=== PATIENT | female | born 1945 | race Hispanic/Latino ===

== ENCOUNTER 2017-09-07 21:05 | Inpatient (IN) | payer MEDICARE ==
[2017-09-07] MEDS: DOPamine 400mg/250ml D5W 400 MG/250 ML BAG IV PRN ×4 (21:05→23:31)
[2017-09-07] MEDS ORDERED: [UNRECOGNIZED DRUG - OTHER] IV ONE (21:09)
[2017-09-07] MEDS ORDERED: DOPAMINE 400 MG/250 ML IV ONE (21:09)
--- NOTE | 2017-09-07 21:30 | ED PDOC ---
Arrival/HPI - General Time Seen by Provider: 09/07/17 21:15 Historian: EMS - History of Present Illness Narrative History of Present Illness (Text): 09/07/17 21:16 71 year old female, with past medical history of type II diabetes, chronic renal failure without dialysis, hypertension, CAD and CABG, presents to the Emergency department via EMS s/p cardiac arrest two days ago. As per EMS, patient presented at [place] [employer] [place] weak and dizzy immediately going into cardiac arrest on the morning of 09/05/17. Patient was resuscitated by [facility], where CPR was continued for 45 minutes with spontaneous recovery to circulation. Patient was intubated and administered 15mcg dopamine, insulin for possible hyperglycemia and versed drip at 4mg/hr. EMS also reports possible aspiration and stroke s/p cardiac arrest. As per EMS patient shows some reflex, unequal but reactive pupils, weak, lethargic and ronchi upon auscultation on physical exam. Patient has been taken off of insulin for possible hypoglycemia and versed and is currently on dopamine only. Patient is brought to the Emergency department today for ongoing critical care and unresponsiveness. Patient is currently receiving ventilatory support and dopamine. Time/Duration: Other (2 days ) Symptom Onset: Sudden Symptom Course: Improving Context: Other (Cruise Ship ) Past Medical History - Provider Review Nursing Documentation Reviewed: Yes Family/Social History - Physician Review Nursing Documentation Reviewed: Yes Family/Social History: No Known Family HX Allergies/Home Meds Allergies/Adverse Reactions: Allergies No Known Allergies Allergy (Verified 09/07/17 21:21) Home Medications: Home Meds Medication Instructions Recorded Confirmed Unobtainable 09/07/17 09/07/17 Review of Systems - Physician Review All systems were reviewed & negative as marked: Yes - Review of Systems Systems not reviewed;Unavailable: Other (Unresponsive) Eyes: Other (pupils fixed ) Respiratory: Other (respiratory failure s/p cardiac arrest ) Cardiovascular: Other (Cardiac arrest ) Neurological: Dizziness Physical Exam Vital Signs Reviewed: Yes Vital Signs Temp Pulse Resp BP Pulse Ox 09/08/17 00:00 98.6 F 82 12 112/49 L 100 09/07/17 23:31 80 103/47 L 09/07/17 22:30 98.6 F 82 12 113/48 L 100 09/07/17 21:55 98.6 F 80 12 117/56 L 98 09/07/17 21:40 98.6 F 82 12 103/47 L 92 L 09/07/17 21:26 98.6 F 80 12 95/38 L 90 L 09/07/17 21:15 80 81/32 L 09/07/17 21:06 98.6 F 73 12 94/48 L 95 09/07/17 21:05 779 H 95/38 L Temperature: Febrile Blood Pressure: Hypotensive Pulse: Regular Respiratory Rate: Mechanically Ventilated Appearance: Positive for: Other (intubated, unresponsive ) Mental Status: Positive for: other (Unresponsive) - Systems Exam Pupils: Present: Other (no corneal reflexes, pupils fixed and dilated ) Respiratory/Chest: Present: Clear to Auscultation (with ventilatory breath sounds), Other (Intubated ) Cardiovascular: Present: Regular Rate and Rhythm, Other (dopamine for blood pressure stabilization ) Abdomen: Present: Normal Bowel Sounds. No: Tenderness, Distention, Peritoneal Signs, Mass/Organomegaly Upper Extremity: Present: Normal Inspection. No: Cyanosis, Edema Lower Extremity: Present: Normal Inspection. No: Edema Neurological: Present: Other (Unresponsive ) Skin: Present: Warm, Dry, Normal Color. No: Rashes Psychiatric: Present: Other (Unresponsive ) Medical Decision Making ED Course and Treatment: 09/07/17 21:38 Impression: 71 year old female presents to the Emergency department s/p cardiac arrest 2 days ago. Plan: -- VBG -- CT of Head -- EKG -- Labs -- Chest X-ray -- Dopamine -- Unrine Culture -- Ventilatory Support -- Reassess and disposition Progress Notes: 09/07/17 22:19 Chest X-ray reviewed by radiologist, shows mild congestion right more than left. No distinct infiltrate. ET tube in good position and NG tube noted in the stomach. 09/07/17 23:40 CT of head reviewed, shows diffused cerebral edema and anoxic encephalopathy. Patient has no corneal reflex, pupils dilated left greater than right. Will perform EEG in the morning to determine viability of patient. Case discussed in detail with patient's family regarding the poor prognosis. It was informed that there is little likelihood of brain function. Family understands the condition of the patient. No acute intervention indicated at this time. Elevated troponin noted. Administration of aspirin at this time will be futile. - Critical Care Critical Care Minutes: 90 minutes Critical Care Time: Other (continuing care s/p cardiac arrest ) - Lab Interpretations Lab Results: 09/07/17 21:50 09/07/17 21:50 Lab Results 09/07/17 23:44: pO2 174 H, VBG pH 7.16 L*, VBG pCO2 46.0, VBG HCO3 16.4 L, VBG Total CO2 17.8 L, VBG O2 Sat (Calc) 98.9 H, VBG Base Excess -12.1 L, VBG Potassium 5.5 H, Glucose 247 H, Lactate 1.9, FiO2 21.0, Sodium 140.0, Chloride 111.0 H, Venous Blood Potassium 5.5 H 09/07/17 21:50: Sodium 136, Potassium 5.4 H, Chloride 108 H, Carbon Dioxide 18 L , Anion Gap 16, BUN 82 H, Creatinine 5.1 H, Est GFR ( Amer) 10, Est GFR ( Non-Af Amer) 8, Random Glucose 223 H, Calcium 8.4, Phosphorus 6.8 H, Magnesium 2.2, Total Bilirubin 0.6, AST 55 H, ALT 32, Alkaline Phosphatase 125, Lactate Dehydrogenase 1388 H, Total Creatine Kinase 595 H, CK-MB (CK-2) 4.6 H, CK-MB (CK -2) % Cancelled, Troponin I 1.40 H*, Total Protein 5.4 L, Albumin 2.5 L, Globulin 3.0, Albumin/Globulin Ratio 0.8 L 09/07/17 21:50: Urine Color Yellow, Urine Appearance Sl cloudy, Urine pH 5.0, Ur Specific [place] 1.025, Urine Protein 100 H, Urine Glucose (UA) Negative, Urine Ketones Trace H, Urine Blood Small H, Urine Nitrate Negative, Urine Bilirubin Negative, Urine Urobilinogen 0.2, Ur Leukocyte Esterase Small H, Urine RBC 5 - 10, Urine WBC 10 - 15, Ur Epithelial Cells Many, Urine Bacteria Large, Hyaline Casts 0 - 2 09/07/17 21:50: PT 11.6, INR 1.02, APTT 29.0 09/07/17 21:50: WBC 8.7, RBC 3.16 L, Hgb 9.4 L, Hct 30.1 L, MCV 95.3, MCH 29.7, MCHC 31.2, RDW 14.1, Plt Count 193, MPV 9.6, Gran % 86.4 H, Lymph % (Auto) 9.0 L , [place] % (Auto) 4.2, Eos % (Auto) 0.3 L, Baso % (Auto) 0.1, Gran # 7.54 H, Lymph # 0.8 L, [place] # 0.4, Eos # 0.0, Baso # 0.01 09/07/17 21:30: pCO2 25 L, pO2 133.0 H, HCO3 10.2 L, ABG pH 7.22 L, ABG Total CO2 11.0 L, ABG O2 Saturation 98.4 H, ABG O2 Content 9.5 L, ABG Base Excess - 16.0 L, ABG Hemoglobin 6.8 L, ABG Carboxyhemoglobin 1.5, POC ABG HHb (Measured) 1.6, ABG Methemoglobin 0.4, ABG O2 Capacity 9.7 L, Hgb O2 Saturation 96.5, FiO2 50.0 - RAD Interpretation Radiology Orders: 09/07/17 21:22 HEAD W/O CONTRAST [CT] Stat 09/07/17 21:23 CHEST PORTABLE [RAD] Stat Temperature Inspector: ED Physician - Medication Orders Current Medication Orders: Dopamine HCl/Dextrose (Dopamine 400mg/250ml D5w) 400 mg in 250 mls @ 0 mls/hr IV .Q0M PRN; Protocol; 5 MCG/KG/MIN PRN Reason: TITRATE PER MD ORDER Last Admin: 09/07/17 23:31 Dose: 82.5 mls/hr eMAR Start Stop Document 09/07/17 23:31 AB (Rec: 09/07/17 23:31 [id number] Intravenous Solution Start Date 09/07/17 Start Time 21:20 MAR Pulse and Blood Pressure Document 09/07/17 23:31 AB (Rec: 09/07/17 23:31 [id number] Pulse Pulse Rate (60-90) 80 Blood Pressure Blood Pressure (100/60-150/90) 103/47 - Scribe Statement The provider has reviewed the documentation as recorded by the Scribe Blanka Valentin. All medical record entries made by the Scribe were at my direction and personally dictated by me. I have reviewed the chart and agree that the record accurately reflects my personal performance of the history, physical exam, medical decision making, and the department course for this patient. I have also personally directed, reviewed, and agree with the discharge instructions and disposition. Disposition/Present on Arrival - Present on Arrival Any Indicators Present on Arrival: No History of DVT/PE: No History of Uncontrolled Diabetes: Yes Urinary Catheter: Yes History of Decub. Ulcer: No - Disposition Have Diagnosis and Disposition been Completed?: Yes Diagnosis: Anoxic encephalopathy, History of cardiac arrest, Renal failure (ARF), acute on chronic Disposition: HOSPITALIZED Disposition Time: 00:15 Patient Plan: Admission, ICU Condition: SERIOUS Referrals: Ivan García Req, [Primary Care Provider] - Follow up with primary Forms: WORK NOTE, MTDTS
[2017-09-07 21:38] LABS: ARTERIAL BLOOD GAS HCO3 10.2 mmol/L (21-28); ARTERIAL BLOOD GAS HEMOGLOBIN 6.8 g/dL (11.7-17.4); ARTERIAL BLOOD GAS O2 CAPACITY 9.7 mL/dl (16-24); ARTERIAL BLOOD GAS O2 CONTENT 9.5 ML/dl (15-23); ARTERIAL BLOOD GAS O2 SAT 98.4 % (95-98); ARTERIAL BLOOD GAS PCO2 25 mm/Hg (35-45); ARTERIAL BLOOD GAS PH 7.22 (7.35-7.45)
[2017-09-07 22:19] LABS: BASO # 0.01 [, K/mm3] (0.0-2.0); BASO % 0.1 % (0.0-3.0); EOS % 0.3 % (1.5-5.0); GRAN # 7.54 (1.4-6.5); GRAN % 86.4 % (50.0-68.0); HEMOGLOBIN 9.4 g/dL (12.0-16.0); LYMPH # 0.8 (1.2-3.4); MEAN CELL VOLUME 95.3 fl (80.0-105.0); MEAN CORPUSCULAR HEMOGLOBIN 29.7 pg (25.0-35.0); MEAN CORPUSCULAR HGB CONC 31.2 g/dl (31.0-37.0); MEAN PLATELET VOLUME 9.6 fl (7.0-11.0); MONO # 0.4 (0.1-0.6); MONO % 4.2 % (1.0-6.0); RBC 3.16 [, 10^6/uL] (3.5-6.1); RED CELL DISTRIBUTION WIDTH 14.1 % (11.5-14.5); WHITE BLOOD COUNT 8.7 [, 10^3/ul] (4.5-11.0)
[2017-09-07 22:20] LABS: URINE BILIRUBIN NEGATIVE (NEGATIVE); URINE BLOOD SMALL (NEGATIVE); URINE GLUCOSE (UA) NEGATIVE (NEGATIVE); URINE LEUKOCYTE ESTERASE SMALL Leu/uL (NEGATIVE); URINE NITRATE NEGATIVE (NEGATIVE); URINE PROTEIN 100 mg/dL (<30 mg/dL); URINE UROBILINOGEN 0.2 E.U./dL (<1 E.U./dL)
[2017-09-07 22:32] LABS: URINE COLOR YELLOW (YELLOW)
[2017-09-07 22:33] LABS: INR 1.02 (0.93-1.08); PROTHROMBIN TIME 11.6 SECONDS (9.4-12.5); URINE APPEARANCE SL CLOUDY (CLEAR)
[2017-09-07 22:37] LABS: ALB/GLOB RATIO 0.8 (1.1-1.8); ALBUMIN 2.5 g/dL (3.0-4.8); CALCIUM 8.4 mg/dL (8.4-10.5); MAGNESIUM 2.2 mg/dL (1.7-2.2)
[2017-09-07 22:41] LABS: CK-MB 4.6 ng/mL (0.0-3.6)
[2017-09-07 22:52] LABS: URINE BACTERIA LARGE (NEG); URINE EPITHELIAL CELLS MANY /hpf (0-5); URINE HYALINE CAST 0 - 2 /hpf
[2017-09-07 23:20] LABS: TROPONIN I 1.4 ng/mL
[2017-09-08 00:06] LABS: VENOUS BLOOD GAS BASE EXCESS -12.1 mmol/L (0.0-2.0); VENOUS BLOOD GAS PO2 174 mm/Hg (30-55); VENOUS BLOOD PH 7.16 (7.32-7.43)
[2017-09-08] MEDS ORDERED: Dextrose 50% SYRINGE Inj (50 ml) IVP STA (00:09)
[2017-09-08] MEDS ORDERED: Insulin Regular 1 UNITS/0.01 ML ML IVP ONE (00:15)
--- NOTE | 2017-09-08 00:18 | CT ---
EXAM: CT Head Without Intravenous Contrast CLINICAL HISTORY: 71 years old, female; Screening exam; Additional info: Unresponsive TECHNIQUE: Axial computed tomography images of the head/brain without intravenous contrast. All CT scans at this facility use one or more dose reduction techniques, viz.: automated exposure control; ma/kV adjustment per patient size (including targeted exams where dose is matched to indication; i.e. head); or iterative reconstruction technique. Coronal and sagittal reformatted images were created and reviewed. COMPARISON: No relevant prior studies available. FINDINGS: Brain: Extensive diffuse sulcal effacement. No intracranial hemorrhage. No mass. Several scattered foci of decreased attenuation within periventricular/subcortical white matter. Diffuse loss of edwards-white matter differentiation. Ventricles: No hydrocephalus. Bones/joints: No acute fracture. Soft tissues: Unremarkable. Vasculature: Atherosclerotic disease of intracranial arteries. Increased density of vessels and dural sinuses. Sinuses: Fluid/opacification of sinuses. Mastoid air cells: No mastoid effusion. Orbits: Unremarkable as visualized. Tubes, lines and devices: Endotracheal tube. Nasogastric tube. IMPRESSION: 1. Findings compatible with global hypoxic-ischemic injury. 2. Incidental/non-acute findings are described above.
--- NOTE | 2017-09-08 00:56 | CP.PCM.HP ---
<Kem Szymanski - Last Filed: 09/08/17 01:16> History of Present Illness - History of Present Illness History of Present Illness: Patient is a 71 year old female with a past medical history of Diabetes Mellitus II, Chronic renal failure without dialysis, hypertension, coronary artery disease s/p CABG two years prior, who presented to [facility] ED on 09/08/17 s/p cardiac arrest on [employer] cruise ship at 7:50 a.m. on 09/05/17. As per patient's two days prior to event patient was experiencing general weakness, and was "not her usual self," on the morning of cardiac arrest patient was complaining of abdominal pain in addition to general weakness. As per medical records provided by [employer] [facility] [employer], ROSC was achieved after 45 minutes of PEA, 5 doses epinephrine administered. Patient was anisocoric from onset of arrest, status unchanged. Patient was ventilated on AC, dopamine, and midazolam infusions were started. Patient was initially on an insulin infusion of 10 units/hr, discontinued after glucose normalized. Due to tendency of patient to trend towards hypoglycemia, patient received intermittent boluses of 50% dextrose. On cruise ship after intervention patient was stable, maintaining good vitals and tolerating ventilator well. Urine output at the time was minimal, with strict fluid restriction. Due to weather and logistical restraints patient was kept on cruise ship until admission to [facility]. Family History singificant for hypertension, coronary artery disease, diabetes mellitus Present on Admission - Present on Admission Any Indicators Present on Admission: No Review of Systems - Review of Systems Systems not reviewed;Unavailable: Intubated Past Patient History - Past Social History Smoking Status: Unknown If Ever Smoked - CARDIAC Hx Cardiac Disorders: Yes Other/Comment: Post Cardiac Arrest - ROSC after 45 minutes of PEA; CABG x 2 years ago - PULMONARY Hx Respiratory Disorders: No - RENAL Hx Chronic Kidney Disease: Yes - ENDOCRINE/METABOLIC Hx Endocrine Disorders: Yes Hx Diabetes Mellitus Type 2: Yes - PSYCHIATRIC Hx Substance Use: No - SURGICAL HISTORY Hx Surgeries: Yes Hx Coronary Artery Bypass Graft: Yes (2 years ago) Meds Allergies/Adverse Reactions: Allergies Allergy/AdvReac Type Severity Reaction Status Date / Time No Known Allergies Allergy Verified 09/07/17 21:21 Physical Exam - Head Exam Head Exam: ATRAUMATIC, NORMAL INSPECTION, NORMOCEPHALIC - Eye Exam Additional comments: OU fixed, OS dilated, OU non reactive to light, OU no corneal reflex present - ENT Exam ENT Exam: Mucous Membranes Dry - Respiratory Exam Additional comments: On ventilator Bruising on chest wall s/p CPR - Cardiovascular Exam Cardiovascular Exam: REGULAR RHYTHM, +S1, +S2 - GI/Abdominal Exam GI & Abdominal Exam: Distended, Soft. absent: Firm - Extremities Exam Extremities exam: Positive for: pedal edema (bilateral pitting edema of lower extremities) - Skin Skin Exam: Intact, Normal Color, Warm Results - Vital Signs Recent Vital Signs: Last Vital Signs Temp 98.6 F 09/08/17 00:00 Pulse 82 09/08/17 00:00 Resp 12 09/08/17 00:00 BP 112/49 L 09/08/17 00:00 Pulse Ox 100 09/08/17 00:00 - Labs Result Diagrams: 09/07/17 21:50 09/07/17 21:50 Assessment & Plan - Assessment and Plan (Free Text) Assessment: 71 year old female presenting to [facility] ED for further evaluation and management s/ p cardiac rest on 09/05/17 found to be unresponsive since event. Plan: Cardiology -Chest X-ray reviewed; pulmonary congestion, possible left sided pleural effusion, cardiomegaly. Awaiting official read. -No brainstem reflex, will continue with dopamine -IVF@75 cc -At time of event on 09/05, patient's troponin was negative x2, upon admission to [facility] troponin found to be 1.4 -Statin,Aspirin,Heparin drip started Pulmonology -Chest X-ray reviewed; pulmonary congestion, possible left sided pleural effusion, cardiomegaly. Awaiting official read. -Blood gas reveals metabolic acidosis;will keep PEEP at 5%, Tidal volume at 400 , FiO2 at 50%, Rate 12 Neurology -CT head reveals findings compatible with global hypoxic-ischemic injury -No brainstem reflex -Continue with neurochecks q1h -Neurology consulted for brain flow study Gastroenterology -NG tube in place, keep NPO, no intervention at this time Renal -Hyperkalemia; treating with calcium gluconate,insulin w/ dextrose -S/P IVF patient is edematous and patient's creatinine continues to trend upward. Currently 5.1; strict Input & Output -IVF@75 Hematology -Hg 9.1, will follow up with hg. No acute management at this time Infectious Disease -Urinalysis reveals possible cystitis will treat with Levaquin (renal dose adjustment) -Follow up urine and blood cultures <Lance Dykes Q - Last Filed: 09/08/17 06:25> Results - Vital Signs Recent Vital Signs: Last Vital Signs Temp 97.5 F L 09/08/17 04:00 Pulse 86 09/08/17 06:00 Resp 12 09/08/17 01:30 BP 100/42 L 09/08/17 06:00 Pulse Ox 100 09/08/17 06:00 - Labs Result Diagrams: 09/08/17 03:43 09/08/17 03:43 Labs: Laboratory Results - last 24 hr 09/08/17 09/08/17 03:43 03:43 WBC 10.8 D RBC 3.37 L Hgb 9.9 L Hct 31.7 L MCV 94.1 MCH 29.4 MCHC 31.2 RDW 14.2 Plt Count 200 MPV 9.5 Gran % 85.3 H Lymph % (Auto) 8.8 L [place] % (Auto) 5.0 Eos % (Auto) 0.7 L Baso % (Auto) 0.2 Gran # 9.17 H Lymph # 1.0 L [place] # 0.5 Eos # 0.1 Baso # 0.02 Sodium 140 Potassium 5.4 H Chloride 110 H Carbon Dioxide 16 L Anion Gap 19 BUN 82 H Creatinine 5.2 H Est GFR ( Amer) 10 Est GFR (Non-Af Amer) 8 Random Glucose 328 H* D Calcium 9.0 Total Bilirubin 0.7 AST 52 H ALT 35 Alkaline Phosphatase 145 H Troponin I 1.39 H* Total Protein 5.8 Albumin 2.7 L Globulin 3.1 Albumin/Globulin Ratio 0.8 L Attending/Attestation - Attestation I have personally seen and examined this patient.: Yes I have fully participated in the care of the patient.: Yes I have reviewed all pertinent clinical information: Yes Notes (Text): 09/08/17 06:15 I agree with the above mentioned note and exam by the resident with the addition /exception of the followin71 y/o female with a PMHx as listed above was brought to [facility] after suffering a cardiac arrest while aboard a cruise ship 3 days prior. Unclear at this point what led to her cardiac arrest, however the patient did undergo approximately 45 minutes of ACLS resuscitation while on the cruise ship. Currently she is not showing meaningful signs of recovery such as breathing over the ventilator, demonstrating a proper cough/gag reflex; pupils are fixed and the left pupil appears dilated in comparison to the right. CT Head showing global hypoxic ischemic injury. Family made aware of her grim prognosis; will obtain Neurology evaluation and she will likely need a brain flow study to determine whether there is flow or not. For now she is being treated for acute cystitis shown on lab work, as well as TAC for an elevated trop (records from the cruise ship show initial negative cardiac enzyme levels). The patient is also demonstrating DEBBIE without any urine output at this time as well as fluid retention secondary to DEBBIE. labs and images available to myself thus far reviewed personally Family members present and updated; who was with the patient on the cruise ship as well as children who flew in from [place] d/w Dr. Crowell in the ED total time of care: 50 minutes
[2017-09-08] MEDS ORDERED: levoFLOXacin 750 mg in D5W 150 ML BAG IVPB STA (01:25)
[2017-09-08] MEDS ORDERED: levoFLOXacin 750 mg in D5W 750 MG/150 ML BAG IVPB STA (01:28)
[2017-09-08] MEDS: Heparin25000 units/250ml 1/2NS 25,000 UNITS/250 ML BAG IV SCH ×2 (02:26→21:21)
[2017-09-08] MEDS: Sodium Chloride 0.9% 1,000 ML IV SCH ×2 (03:07→20:14)
[2017-09-08] MEDS: DOPamine 400mg/250ml D5W 400 MG/250 ML BAG IV PRN ×6 (03:18→21:20)
[2017-09-08 03:59] LABS: BASO # 0.02 [, K/mm3] (0.0-2.0); BASO % 0.2 % (0.0-3.0); EOS # 0.1 (0.0-0.7); EOS % 0.7 % (1.5-5.0); GRAN # 9.17 (1.4-6.5); GRAN % 85.3 % (50.0-68.0); HEMOGLOBIN 9.9 g/dL (12.0-16.0); LYMPH % 8.8 % (22.0-35.0); MEAN CELL VOLUME 94.1 fl (80.0-105.0); MEAN CORPUSCULAR HEMOGLOBIN 29.4 pg (25.0-35.0); MEAN CORPUSCULAR HGB CONC 31.2 g/dl (31.0-37.0); MEAN PLATELET VOLUME 9.5 fl (7.0-11.0); MONO # 0.5 (0.1-0.6); RBC 3.37 [, 10^6/uL] (3.5-6.1); RED CELL DISTRIBUTION WIDTH 14.2 % (11.5-14.5); WHITE BLOOD COUNT 10.8 [, 10^3/ul] (4.5-11.0)
[2017-09-08 06:03] LABS: ALB/GLOB RATIO 0.8 (1.1-1.8); ALBUMIN 2.7 g/dL (3.0-4.8); TROPONIN I 1.39 ng/mL
[2017-09-08 06:12] LABS: ARTERIAL BLOOD GAS HCO3 14.1 mmol/L (21-28); ARTERIAL BLOOD GAS HEMOGLOBIN 21.8 g/dL (11.7-17.4); ARTERIAL BLOOD GAS O2 CAPACITY 30.5 mL/dl (16-24); ARTERIAL BLOOD GAS O2 SAT 98.2 % (95-98); ARTERIAL BLOOD GAS PCO2 37 mm/Hg (35-45); ARTERIAL BLOOD GAS TCO2 15.2 mmol.L (22-28)
[2017-09-08 06:21] LABS: ARTERIAL BLOOD GAS PH 7.19 (7.35-7.45)
--- NOTE | 2017-09-08 08:33 | RAD ---
HISTORY: intubated COMPARISON: 09/07/2017 8:10 p.m. FINDINGS: The endotracheal tube terminates 2 cm proximal to the blaise. The nasogastric tube terminates in the stomach. LUNGS: Again seen is mild pulmonary venous congestion. There is bibasilar atelectasis. PLEURA: No change in small left pleural effusion, no pneumothorax apparent. CARDIOVASCULAR: There is persistent moderate cardiomegaly with prominent central vasculature. Status post CABG. OSSEOUS STRUCTURES: No significant abnormalities. VISUALIZED UPPER ABDOMEN: Normal. OTHER FINDINGS: None. IMPRESSION: No change in pulmonary venous congestion, persistent moderate cardiomegaly and small pleural effusion. Stable position of endotracheal and nasogastric tubes.
[2017-09-08 10:04] LABS: INR 1.08 (0.93-1.08); PARTIAL THROMBOPLASTIN TIME 46.4 Seconds (25.1-36.5); PROTHROMBIN TIME 12.4 SECONDS (9.4-12.5)
--- NOTE | 2017-09-08 10:14 | CARD ---
APPROVED REPORT EKG Measurement Heart [id number] <Conclusion> RSR ASMI, age unknown STTW changes c/w ischemia
--- NOTE | 2017-09-08 10:25 | CP.PCM.CON ---
<Kendra Tillman - Last Filed: 09/08/17 14:13> History of Present Illness - History of Present Illness History of Present Illness: ICU consult Note for Yelena Ha PGY2 This is a 71yo female with past medical history of DM, CKD (not on HD), HTN, CAD s/p CABG who was admitted overnight for cardiac arrest. Prior to this episode, patient was complaining of weakness and abdominal pain. Patient was on cruise ship and had cardiac arrest on 09/05/17. She is s/p ROSC after 5 doses of epinephrine given. She was placed on a ventilator on the cruise ship and since the cardiac arrest has not been awake, alert and does not move her extremities. She was placed on Dopamine and Midazolam on the ship and was [place] [facility] This am, patient is intubated, not on sedation. ROS could not be obtained. History was obtained through previous notes and family. Past medical history: DM, CKD (not on HD), HTN, CAD s/p CABG Past surgical history: CABG, cholecystectomy Home meds: As per [facility] Allergies: NKDA Social history: Denies EtOH, drug or tobacco use Review of Systems - Review of Systems Systems not reviewed;Unavailable: Intubated Past Patient History - Past Social History Smoking Status: Unknown If Ever Smoked - CARDIAC Hx Cardiac Disorders: Yes Other/Comment: Post Cardiac Arrest - ROSC after 45 minutes of PEA; CABG x 2 years ago - PULMONARY Hx Respiratory Disorders: No - RENAL Hx Chronic Kidney Disease: Yes - ENDOCRINE/METABOLIC Hx Endocrine Disorders: Yes Hx Diabetes Mellitus Type 2: Yes - PSYCHIATRIC Hx Substance Use: No - SURGICAL HISTORY Hx Surgeries: Yes Hx Coronary Artery Bypass Graft: Yes (2 years ago) Meds Allergies/Adverse Reactions: Allergies Allergy/AdvReac Type Severity Reaction Status Date / Time No Known Allergies Allergy Verified 09/07/17 21:21 - Medications Medications: Current Medications Aspirin (Aspirin Chewable) 81 mg PO DAILY [facility] Atorvastatin Calcium (Lipitor) 40 mg PO DIN [facility] Dopamine HCl/Dextrose (Dopamine 400mg/250ml D5w) 400 mg in 250 mls @ 0 mls/hr IV .Q0M PRN; Protocol; 5 MCG/KG/MIN PRN Reason: TITRATE PER MD ORDER Last Admin: 09/08/17 07:30 Dose: 20.04 mcg/kg/min, 82.5 mls/hr Heparin Sodium/Sodium Chloride (Heparin 50576 Units/250ml 1/2 Normal Saline) 25 ,000 units in 250 mls @ 13.172 mls/hr IV .[id number] [facility]; 12 UNITS/KG/HR PRN Reason: Protocol Last Admin: 09/08/17 02:26 Dose: 12 units/kg/hr, 13.172 mls/hr Sodium Chloride (Sodium Chloride 0.9%) 1,000 mls @ 75 mls/hr IV .[id number] [facility] Last Admin: 09/08/17 03:07 Dose: 75 mls/hr Levofloxacin/Dextrose (Levaquin 500mg) 500 mg in 100 mls @ 100 mls/hr IVPB Q48H [facility] Pantoprazole Sodium (Protonix Inj) 40 mg IVP DAILY [facility] Physical Exam - Constitutional Appears: Chronically Ill - Head Exam Head Exam: ATRAUMATIC, NORMAL INSPECTION, NORMOCEPHALIC - Eye Exam Eye Exam: absent: PERRL Pupil Exam: Fixed, Unequal (L pupil 5mm, R pupil 3mm). absent: PERRL - ENT Exam ENT Exam: Mucous Membranes Dry - Respiratory Exam Respiratory Exam: Clear to Auscultation Bilateral, NORMAL BREATHING PATTERN. absent: Rales, Rhonchi, Wheezes - Cardiovascular Exam Cardiovascular Exam: REGULAR RHYTHM, +S1, +S2. absent: Gallop, Rubs, Systolic Murmur - GI/Abdominal Exam GI & Abdominal Exam: Normal Bowel Sounds, Soft. absent: Tenderness - Extremities Exam Extremities exam: Positive for: normal inspection, pedal edema (trace Bilateral ). Negative for: calf tenderness - Neurological Exam Additional comments: Patient does not have any brainstem reflex including dolls eye, gag, corneal or calimetric reflexes. - Expanded Neurological Exam Expanded Cranial nerves: EOM's Intact: Abnormal Left, Abnormal Right, Gag Reflex: Abnormal Left, Abnormal Right Coma Scale Eye Opening: None Coma Scale Motor Response: None Coma Scale Verbal: None Coma Scale Total: 3 - Skin Skin Exam: Dry, Warm Results - Vital Signs Recent Vital Signs: Last Vital Signs Temp 97.5 F L 09/08/17 04:00 Pulse 86 09/08/17 06:00 Resp 88 H 09/08/17 06:00 BP 100/42 L 09/08/17 06:00 Pulse Ox 100 01/19/18 06:00 - Labs Result Diagrams: 09/08/17 03:43 09/08/17 03:43 Labs: Laboratory Results - last 24 hr 09/08/17 09/08/17 09/08/17 03:43 03:43 05:45 WBC 10.8 D RBC 3.37 L Hgb 9.9 L Hct 31.7 L MCV 94.1 MCH 29.4 MCHC 31.2 RDW 14.2 Plt Count 200 MPV 9.5 Gran % 85.3 H Lymph % (Auto) 8.8 L [place] % (Auto) 5.0 Eos % (Auto) 0.7 L Baso % (Auto) 0.2 Gran # 9.17 H Lymph # 1.0 L [place] # 0.5 Eos # 0.1 Baso # 0.02 PT INR APTT pCO2 37 pO2 198.0 H HCO3 14.1 L ABG pH 7.19 L* ABG Total CO2 15.2 L ABG O2 Saturation 98.2 H ABG O2 Content 30.0 H ABG Base Excess -13.1 L ABG Hemoglobin 21.8 H ABG Carboxyhemoglobin 0.8 POC ABG HHb (Measured) 1.8 ABG Methemoglobin 0.3 ABG O2 Capacity 30.5 H Hgb O2 Saturation 97.1 FiO2 60.0 Sodium 140 Potassium 5.4 H Chloride 110 H Carbon Dioxide 16 L Anion Gap 19 BUN 82 H Creatinine 5.2 H Est GFR ( Amer) 10 Est GFR (Non-Af Amer) 8 Random Glucose 328 H* D Calcium 9.0 Total Bilirubin 0.7 AST 52 H ALT 35 Alkaline Phosphatase 145 H Troponin I 1.39 H* Total Protein 5.8 Albumin 2.7 L Globulin 3.1 Albumin/Globulin Ratio 0.8 L 09/08/17 09:40 WBC RBC Hgb Hct MCV MCH MCHC RDW Plt Count MPV Gran % Lymph % (Auto) [place] % (Auto) Eos % (Auto) Baso % (Auto) Gran # Lymph # [place] # Eos # Baso # PT 12.4 INR 1.08 APTT 46.4 H pCO2 pO2 HCO3 ABG pH ABG Total CO2 ABG O2 Saturation ABG O2 Content ABG Base Excess ABG Hemoglobin ABG Carboxyhemoglobin POC ABG HHb (Measured) ABG Methemoglobin ABG O2 Capacity Hgb O2 Saturation FiO2 Sodium Potassium Chloride Carbon Dioxide Anion Gap BUN Creatinine Est GFR ( Amer) Est GFR (Non-Af Amer) Random Glucose Calcium Total Bilirubin AST ALT Alkaline Phosphatase Troponin I Total Protein Albumin Globulin Albumin/Globulin Ratio Assessment & Plan - Assessment and Plan (Free Text) Assessment: This is a 71yo female with past medical history of DM, CKD (not on HD), HTN, CAD s/p CABG who was admitted for anoxic brain injury secondary to cardiac arrest. Plan: Neuro: Anoxic brain injury, without brain stem reflex EEG done- final read pending Neuro consulted Head CT showed global anoxic brain injury Continue neuro checks Seizure precaution Maintain normothermia CV: NSTEMI in setting of DEBBIE Troponin 1.4->1.39->1.37 Continue Heparin drip Patient on Dopamine- will switch to levophed Continue ASA and Lipitor Maintain MAP>65 Pulm: Patient intubated- not on sedation Maintain SpO2>92% Protective lung ventilation strategy Head of bed elevated Aspiration precaution GI: NPO GI prophylaxis Nephro: DEBBIE on CKD Continue to monitor electrolytes and replace as needed NS@75 Continue to monitor I&O Heme: Hgb stable No overt signs of bleeding ID: Afebrile, no leukocytosis U/A showed UTI, urine culture pending Pt on Levaquin Endo: Hx of DM Continue ISS Maintain euglycemia (140s-180s) Dispo: Palliative care consulted. Case seen, discussed and reviewed with attending. Yelena Tillman PGY2 - Date & Time Date: 09/08/17 Time: 10:54 <Sudhakar Fitzgerald - Last Filed: 09/08/17 18:34> Meds - Medications Medications: Current Medications Aspirin (Aspirin Chewable) 81 mg PO DAILY [facility] Last Admin: 09/08/17 17:06 Dose: 81 mg Atorvastatin Calcium (Lipitor) 40 mg PO DIN [facility] Last Admin: 09/08/17 17:06 Dose: 40 mg Dopamine HCl/Dextrose (Dopamine 400mg/250ml D5w) 400 mg in 250 mls @ 0 mls/hr IV .Q0M PRN; Protocol; 5 MCG/KG/MIN PRN Reason: TITRATE PER MD ORDER Last Admin: 09/08/17 17:04 Dose: 20.04 mcg/kg/min, 82.5 mls/hr Heparin Sodium/Sodium Chloride (Heparin 83182 Units/250ml 1/2 Normal Saline) 25 ,000 units in 250 mls @ 13.172 mls/hr IV .[id number] [facility]; 12 UNITS/KG/HR PRN Reason: Protocol Last Titration: 09/08/17 12:21 Dose: 14 units/kg/hr, 15.368 mls/hr Sodium Chloride (Sodium Chloride 0.9%) 1,000 mls @ 75 mls/hr IV .[id number] [facility] Last Admin: 09/08/17 03:07 Dose: 75 mls/hr Levofloxacin/Dextrose (Levaquin 500mg) 500 mg in 100 mls @ 100 mls/hr IVPB Q48H [facility] Insulin Human Regular 100 (units/ Sodium Chloride) 100 mls @ 2 mls/hr IV .Q24H PRN; Protocol; 2 UNITS/HR PRN Reason: TITRATE PER MD ORDER Last Titration: 09/08/17 16:09 Dose: 6 units/hr, 6 mls/hr Insulin Human Regular (Humulin R Med) 0 units SC ACHS [facility] PRN Reason: Protocol Last Admin: 09/08/17 12:00 Dose: 7 units Pantoprazole Sodium (Protonix Inj) 40 mg IVP DAILY [facility] Last Admin: 09/08/17 11:28 Dose: 40 mg Results - Vital Signs Recent Vital Signs: Last Vital Signs Temp 98.8 F 09/08/17 14:20 Pulse 95 H 09/08/17 14:20 Resp 18 09/08/17 10:00 BP 98/49 L 09/08/17 14:00 Pulse Ox 100 09/08/17 14:20 - Labs Result Diagrams: 09/08/17 03:43 09/08/17 03:43 Labs: Laboratory Results - last 24 hr 09/08/17 09/08/17 09/08/17 03:43 03:43 05:45 WBC 10.8 D RBC 3.37 L Hgb 9.9 L Hct 31.7 L MCV 94.1 MCH 29.4 MCHC 31.2 RDW 14.2 Plt Count 200 MPV 9.5 Gran % 85.3 H Lymph % (Auto) 8.8 L [place] % (Auto) 5.0 Eos % (Auto) 0.7 L Baso % (Auto) 0.2 Gran # 9.17 H Lymph # 1.0 L [place] # 0.5 Eos # 0.1 Baso # 0.02 PT INR APTT pCO2 37 pO2 198.0 H HCO3 14.1 L ABG pH 7.19 L* ABG Total CO2 15.2 L ABG O2 Saturation 98.2 H ABG O2 Content 30.0 H ABG Base Excess -13.1 L ABG Hemoglobin 21.8 H ABG Carboxyhemoglobin 0.8 POC ABG HHb (Measured) 1.8 ABG Methemoglobin 0.3 ABG O2 Capacity 30.5 H Hgb O2 Saturation 97.1 FiO2 60.0 Sodium 140 Potassium 5.4 H Chloride 110 H Carbon Dioxide 16 L Anion Gap 19 BUN 82 H Creatinine 5.2 H Est GFR ( Amer) 10 Est GFR (Non-Af Amer) 8 POC Glucose (mg/dL) Random Glucose 328 H* D Calcium 9.0 Total Bilirubin 0.7 AST 52 H ALT 35 Alkaline Phosphatase 145 H Troponin I 1.39 H* Total Protein 5.8 Albumin 2.7 L Globulin 3.1 Albumin/Globulin Ratio 0.8 L 09/08/17 09/08/17 09/08/17 09:40 09:40 11:41 WBC RBC Hgb Hct MCV MCH MCHC RDW Plt Count MPV Gran % Lymph % (Auto) [place] % (Auto) Eos % (Auto) Baso % (Auto) Gran # Lymph # [place] # Eos # Baso # PT 12.4 INR 1.08 APTT 46.4 H pCO2 pO2 HCO3 ABG pH ABG Total CO2 ABG O2 Saturation ABG O2 Content ABG Base Excess ABG Hemoglobin ABG Carboxyhemoglobin POC ABG HHb (Measured) ABG Methemoglobin ABG O2 Capacity Hgb O2 Saturation FiO2 Sodium Potassium Chloride Carbon Dioxide Anion Gap BUN Creatinine Est GFR ( Amer) Est GFR (Non-Af Amer) POC Glucose (mg/dL) 311 H Random Glucose Calcium Total Bilirubin AST ALT Alkaline Phosphatase Troponin I 1.37 H* Total Protein Albumin Globulin Albumin/Globulin Ratio 09/08/17 09/08/17 09/08/17 13:21 14:26 14:57 WBC RBC Hgb Hct MCV MCH MCHC RDW Plt Count MPV Gran % Lymph % (Auto) [place] % (Auto) Eos % (Auto) Baso % (Auto) Gran # Lymph # [place] # Eos # Baso # PT INR APTT pCO2 pO2 HCO3 ABG pH ABG Total CO2 ABG O2 Saturation ABG O2 Content ABG Base Excess ABG Hemoglobin ABG Carboxyhemoglobin POC ABG HHb (Measured) ABG Methemoglobin ABG O2 Capacity Hgb O2 Saturation FiO2 Sodium Potassium Chloride Carbon Dioxide Anion Gap BUN Creatinine Est GFR ( Amer) Est GFR (Non-Af Amer) POC Glucose (mg/dL) 325 H 307 H 308 H Random Glucose Calcium Total Bilirubin AST ALT Alkaline Phosphatase Troponin I Total Protein Albumin Globulin Albumin/Globulin Ratio 09/08/17 09/08/17 16:04 17:40 WBC RBC Hgb Hct MCV MCH MCHC RDW Plt Count MPV Gran % Lymph % (Auto) [place] % (Auto) Eos % (Auto) Baso % (Auto) Gran # Lymph # [place] # Eos # Baso # PT INR APTT pCO2 pO2 HCO3 ABG pH ABG Total CO2 ABG O2 Saturation ABG O2 Content ABG Base Excess ABG Hemoglobin ABG Carboxyhemoglobin POC ABG HHb (Measured) ABG Methemoglobin ABG O2 Capacity Hgb O2 Saturation FiO2 Sodium Potassium Chloride Carbon Dioxide Anion Gap BUN Creatinine Est GFR ( Amer) Est GFR (Non-Af Amer) POC Glucose (mg/dL) 295 H 274 H Random Glucose Calcium Total Bilirubin AST ALT Alkaline Phosphatase Troponin I Total Protein Albumin Globulin Albumin/Globulin Ratio Attending/Attestation - Attestation I have personally seen and examined this patient.: Yes I have fully participated in the care of the patient.: Yes I have reviewed all pertinent clinical information: Yes Notes (Text): 09/08/17 18:29 71 yo female after cardiac arrest with severe anoxic brain injury with only medullary brainstem reflexes preserved. EEG and CTH results as well clinical picture suggests very poor prognosis (patient is close to day 3 after cardiac arrest--no therapeutic hypothermia attempted on the ship). . Meanwhile patient is required ventilatory and hemodynamic supprt which is provided. Discussed CVL for pressors-->risks and benefits discussed, alternatives discussed--family wanted continue pressors through PIV and avoid CVL.. Palliative care consult is appreciated. ccm tikme 40 min
--- NOTE | 2017-09-08 11:48 | CP.PCM.CON ---
History of Present Illness - History of Present Illness History of Present Illness: Palliative consult requested by Dr Carmela Batista Reason: Goals of care 71 year old female with history of DM,CKD ,HTN who suffered cardiac arrest while vacationing on a cruise ship. ROSC was achieved after [address] of head showed global hypoxic -ischemic injury. Chest X ray showed pulmonary congestion,cardiomegaly and small left pleural effusion. GCS 3. Social History: Non smoker, no alcohol or drug use. ,lives with spouse. Practices [employer]. Family History: HTN, CAD s/p CABG, and DM. Advance Care Planning:The patient does not have an Advanced Directive Review of Systems: Patient is intubated,non reactive. Unable to obtain. Past Patient History - Past Social History Smoking Status: Unknown If Ever Smoked - CARDIAC Hx Cardiac Disorders: Yes Other/Comment: Post Cardiac Arrest - ROSC after 45 minutes of PEA; CABG x 2 years ago - PULMONARY Hx Respiratory Disorders: No - RENAL Hx Chronic Kidney Disease: Yes - ENDOCRINE/METABOLIC Hx Endocrine Disorders: Yes Hx Diabetes Mellitus Type 2: Yes - PSYCHIATRIC Hx Substance Use: No - SURGICAL HISTORY Hx Surgeries: Yes Hx Coronary Artery Bypass Graft: Yes (2 years ago) Meds Allergies/Adverse Reactions: Allergies Allergy/AdvReac Type Severity Reaction Status Date / Time No Known Allergies Allergy Verified 09/07/17 21:21 - Medications Medications: Current Medications Aspirin (Aspirin Chewable) 81 mg PO DAILY [facility] Atorvastatin Calcium (Lipitor) 40 mg PO DIN [facility] Dopamine HCl/Dextrose (Dopamine 400mg/250ml D5w) 400 mg in 250 mls @ 0 mls/hr IV .Q0M PRN; Protocol; 5 MCG/KG/MIN PRN Reason: TITRATE PER MD ORDER Last Admin: 09/08/17 11:29 Dose: 20.04 mcg/kg/min, 82.5 mls/hr Heparin Sodium/Sodium Chloride (Heparin 39098 Units/250ml 1/2 Normal Saline) 25 ,000 units in 250 mls @ 13.172 mls/hr IV .[id number] [facility]; 12 UNITS/KG/HR PRN Reason: Protocol Last Admin: 09/08/17 02:26 Dose: 12 units/kg/hr, 13.172 mls/hr Sodium Chloride (Sodium Chloride 0.9%) 1,000 mls @ 75 mls/hr IV .[id number] [facility] Last Admin: 09/08/17 03:07 Dose: 75 mls/hr Levofloxacin/Dextrose (Levaquin 500mg) 500 mg in 100 mls @ 100 mls/hr IVPB Q48H [facility] Insulin Human Regular (Humulin R Med) 0 units SC ACHS [facility] PRN Reason: Protocol Pantoprazole Sodium (Protonix Inj) 40 mg IVP DAILY [facility] Last Admin: 09/08/17 11:28 Dose: 40 mg Physical Exam - Constitutional Appears: Chronically Ill - Eye Exam Pupil Exam: Fixed - ENT Exam ENT Exam: Mucous Membranes Moist - Respiratory Exam Respiratory Exam: Decreased Breath Sounds, Rales - Cardiovascular Exam Cardiovascular Exam: REGULAR RHYTHM, +S1, +S2 - GI/Abdominal Exam GI & Abdominal Exam: Hypoactive Bowel Sounds, Soft - Extremities Exam Additional comments: 2+ bilateral lower extremity edema - Skin Skin Exam: Dry, Warm - Additional Findings Additional findings: Palliative performance scale rating 10 % Results - Vital Signs Recent Vital Signs: Last Vital Signs Temp 97.9 F 09/08/17 09:00 Pulse 85 09/08/17 10:20 Resp 88 H 09/08/17 06:00 BP 73/27 L 09/08/17 10:03 Pulse Ox 99 09/08/17 10:20 - Labs Result Diagrams: 09/08/17 03:43 09/08/17 03:43 Labs: Laboratory Results - last 24 hr 09/08/17 09/08/17 09/08/17 03:43 03:43 05:45 WBC 10.8 D RBC 3.37 L Hgb 9.9 L Hct 31.7 L MCV 94.1 MCH 29.4 MCHC 31.2 RDW 14.2 Plt Count 200 MPV 9.5 Gran % 85.3 H Lymph % (Auto) 8.8 L [place] % (Auto) 5.0 Eos % (Auto) 0.7 L Baso % (Auto) 0.2 Gran # 9.17 H Lymph # 1.0 L [place] # 0.5 Eos # 0.1 Baso # 0.02 PT INR APTT pCO2 37 pO2 198.0 H HCO3 14.1 L ABG pH 7.19 L* ABG Total CO2 15.2 L ABG O2 Saturation 98.2 H ABG O2 Content 30.0 H ABG Base Excess -13.1 L ABG Hemoglobin 21.8 H ABG Carboxyhemoglobin 0.8 POC ABG HHb (Measured) 1.8 ABG Methemoglobin 0.3 ABG O2 Capacity 30.5 H Hgb O2 Saturation 97.1 FiO2 60.0 Sodium 140 Potassium 5.4 H Chloride 110 H Carbon Dioxide 16 L Anion Gap 19 BUN 82 H Creatinine 5.2 H Est GFR ( Amer) 10 Est GFR (Non-Af Amer) 8 Random Glucose 328 H* D Calcium 9.0 Total Bilirubin 0.7 AST 52 H ALT 35 Alkaline Phosphatase 145 H Troponin I 1.39 H* Total Protein 5.8 Albumin 2.7 L Globulin 3.1 Albumin/Globulin Ratio 0.8 L 09/08/17 09/08/17 09:40 09:40 WBC RBC Hgb Hct MCV MCH MCHC RDW Plt Count MPV Gran % Lymph % (Auto) [place] % (Auto) Eos % (Auto) Baso % (Auto) Gran # Lymph # [place] # Eos # Baso # PT 12.4 INR 1.08 APTT 46.4 H pCO2 pO2 HCO3 ABG pH ABG Total CO2 ABG O2 Saturation ABG O2 Content ABG Base Excess ABG Hemoglobin ABG Carboxyhemoglobin POC ABG HHb (Measured) ABG Methemoglobin ABG O2 Capacity Hgb O2 Saturation FiO2 Sodium Potassium Chloride Carbon Dioxide Anion Gap BUN Creatinine Est GFR ( Amer) Est GFR (Non-Af Amer) Random Glucose Calcium Total Bilirubin AST ALT Alkaline Phosphatase Troponin I 1.37 H* Total Protein Albumin Globulin Albumin/Globulin Ratio Assessment & Plan - Assessment and Plan (Free Text) Assessment: 71 year old female with history of CAD,CABG, HTN and DM who was admitted s/p cardiopulmonary arrest, GCS 3,no brainstem reflexes. CT global ischemia. EEG pending. Patients family at bedside. They are waiting to speak with neurologist regarding further findings/prognosis. The family is strict tenriism [employer] sj. Once they have medical information/neurologist input they will speak with their Rabbi in order to establish next steps/goals of care. Family understands that patient is gravely ill. Psychosocial support given. Will attempt to contact local Rabbi for additional support and guidance. Time spent with family providing psychosocial support,30 minutes Plan: Goals of care Psychosocial support
[2017-09-08] MEDS: Insulin Reg-MEDIUM-Coverage SC SCH ×2 (12:00→22:00)
[2017-09-08] MEDS ORDERED: Insulin Regular 100 UNITS in Sodium Chloride 0.9% 99 ML IV PRN ×2 (12:08→15:00)
--- NOTE | 2017-09-08 12:58 | CP.PCM.CON ---
History of Present Illness - History of Present Illness History of Present Illness: Mrs. Plata is a 71-year-old woman with a past medical history of HTN, CAD (s/p CABG), DM, HLD, who was on a cruise with her and had a serum glucose of 400, shortly after, developed cardiac arrest, required 45 minutes of CPR before pulses were regained. She was brought to the ED, where an initial CT scan of the head showed diffuse hypoxic brain injury. On exam, she had a GCS of 3. Pupils were dilated, non-reactive, corneal reflex was not present, she was already intubated, and was breathing over the ventilator. An EEG showed no significant cortical activity. Review of Systems - Review of Systems Systems not reviewed;Unavailable: Unstable Vital Signs All systems: reviewed and no additional remarkable complaints except Past Patient History - Past Social History Smoking Status: Unknown If Ever Smoked - CARDIAC Hx Cardiac Disorders: Yes Other/Comment: Post Cardiac Arrest - ROSC after 45 minutes of PEA; CABG x 2 years ago - PULMONARY Hx Respiratory Disorders: No - RENAL Hx Chronic Kidney Disease: Yes - ENDOCRINE/METABOLIC Hx Endocrine Disorders: Yes Hx Diabetes Mellitus Type 2: Yes - PSYCHIATRIC Hx Substance Use: No - SURGICAL HISTORY Hx Surgeries: Yes Hx Coronary Artery Bypass Graft: Yes (2 years ago) Meds Allergies/Adverse Reactions: Allergies Allergy/AdvReac Type Severity Reaction Status Date / Time No Known Allergies Allergy Verified 09/07/17 21:21 - Medications Medications: Current Medications Aspirin (Aspirin Chewable) 81 mg PO DAILY [facility] Atorvastatin Calcium (Lipitor) 40 mg PO DIN [facility] Dopamine HCl/Dextrose (Dopamine 400mg/250ml D5w) 400 mg in 250 mls @ 0 mls/hr IV .Q0M PRN; Protocol; 5 MCG/KG/MIN PRN Reason: TITRATE PER MD ORDER Last Admin: 09/08/17 11:29 Dose: 20.04 mcg/kg/min, 82.5 mls/hr Heparin Sodium/Sodium Chloride (Heparin 89645 Units/250ml 1/2 Normal Saline) 25 ,000 units in 250 mls @ 13.172 mls/hr IV .[id number] [facility]; 12 UNITS/KG/HR PRN Reason: Protocol Last Titration: 09/08/17 12:21 Dose: 14 units/kg/hr, 15.368 mls/hr Sodium Chloride (Sodium Chloride 0.9%) 1,000 mls @ 75 mls/hr IV .[id number] [facility] Last Admin: 09/08/17 03:07 Dose: 75 mls/hr Levofloxacin/Dextrose (Levaquin 500mg) 500 mg in 100 mls @ 100 mls/hr IVPB Q48H [facility] Insulin Human Regular 100 (units/ Sodium Chloride) 100 mls @ 2 mls/hr IV .Q24H PRN; Protocol; 2 UNITS/HR PRN Reason: TITRATE PER MD ORDER Insulin Human Regular (Humulin R Med) 0 units SC ACHS [facility] PRN Reason: Protocol Last Admin: 09/08/17 12:00 Dose: 7 units Pantoprazole Sodium (Protonix Inj) 40 mg IVP DAILY [facility] Last Admin: 09/08/17 11:28 Dose: 40 mg Physical Exam - Neurological Exam Additional comments: Intubated, off sedation, on pressers, BP is unstable, pupils are dilated, fixed and non-reactive, no corneal reflex noted, no cough/gag, breaths over the ventilator. GCS=3. No response to painful stimulus (sternal rub, TMJ pressure, or nail bed pressure). Results - Vital Signs Recent Vital Signs: Last Vital Signs Temp 98.2 F 09/08/17 12:30 Pulse 94 H 09/08/17 12:30 Resp 88 H 09/08/17 06:00 BP 81/45 L 09/08/17 12:00 Pulse Ox 100 09/08/17 12:30 - Labs Result Diagrams: 09/08/17 03:43 09/08/17 03:43 Labs: Laboratory Results - last 24 hr 09/08/17 09/08/17 09/08/17 03:43 03:43 05:45 WBC 10.8 D RBC 3.37 L Hgb 9.9 L Hct 31.7 L MCV 94.1 MCH 29.4 MCHC 31.2 RDW 14.2 Plt Count 200 MPV 9.5 Gran % 85.3 H Lymph % (Auto) 8.8 L [place]w % (Auto) 5.0 Eos % (Auto) 0.7 L Baso % (Auto) 0.2 Gran # 9.17 H Lymph # 1.0 L [place]tholomew # 0.5 Eos # 0.1 Baso # 0.02 PT INR APTT pCO2 37 pO2 198.0 H HCO3 14.1 L ABG pH 7.19 L* ABG Total CO2 15.2 L ABG O2 Saturation 98.2 H ABG O2 Content 30.0 H ABG Base Excess -13.1 L ABG Hemoglobin 21.8 H ABG Carboxyhemoglobin 0.8 POC ABG HHb (Measured) 1.8 ABG Methemoglobin 0.3 ABG O2 Capacity 30.5 H Hgb O2 Saturation 97.1 FiO2 60.0 Sodium 140 Potassium 5.4 H Chloride 110 H Carbon Dioxide 16 L Anion Gap 19 BUN 82 H Creatinine 5.2 H Est GFR ( Amer) 10 Est GFR (Non-Af Amer) 8 POC Glucose (mg/dL) Random Glucose 328 H* D Calcium 9.0 Total Bilirubin 0.7 AST 52 H ALT 35 Alkaline Phosphatase 145 H Troponin I 1.39 H* Total Protein 5.8 Albumin 2.7 L Globulin 3.1 Albumin/Globulin Ratio 0.8 L 09/08/17 09/08/17 09/08/17 09:40 09:40 11:41 WBC RBC Hgb Hct MCV MCH MCHC RDW Plt Count MPV Gran % Lymph % (Auto) [place]th[place]omew % (Auto) Eos % (Auto) Baso % (Auto) Gran # Lymph # Bartholomew # Eos # Baso # PT 12.4 INR 1.08 APTT 46.4 H pCO2 pO2 HCO3 ABG pH ABG Total CO2 ABG O2 Saturation ABG O2 Content ABG Base Excess ABG Hemoglobin ABG Carboxyhemoglobin POC ABG HHb (Measured) ABG Methemoglobin ABG O2 Capacity Hgb O2 Saturation FiO2 Sodium Potassium Chloride Carbon Dioxide Anion Gap BUN Creatinine Est GFR ( Amer) Est GFR (Non-Af Amer) POC Glucose (mg/dL) 311 H Random Glucose Calcium Total Bilirubin AST ALT Alkaline Phosphatase Troponin I 1.37 H* Total Protein Albumin Globulin Albumin/Globulin Ratio Assessment & Plan (1) Anoxic brain injury Assessment and Plan: At this point, the patient is unlikely to recover any cortical activity. Prognosis is very poor. She only has medullary function at this time, so she is not completely brain per protocol. Family is deciding on withdrawal of care based on their mormon guidelines and public relations counselor. We will continue following the clinical exam and consider brain perfusion studies, if indicated. No further recommendations from a neurological standpoint. Thank you. Status: Acute Priority: High
[2017-09-08 15:57] VITALS: BMI 44.2
[2017-09-09] MEDS: DOPamine 400mg/250ml D5W 400 MG/250 ML BAG IV PRN ×3 (01:27→10:36)
[2017-09-09 06:15] LABS: BASO # 0.03 [, K/mm3] (0.0-2.0); BASO % 0.2 % (0.0-3.0); EOS # 0.6 (0.0-0.7); GRAN # 9.18 (1.4-6.5); GRAN % 75.8 % (50.0-68.0); HEMOGLOBIN 9.5 g/dL (12.0-16.0); LYMPH # 1.5 (1.2-3.4); LYMPH % 12.1 % (22.0-35.0); MEAN CORPUSCULAR HEMOGLOBIN 29.1 pg (25.0-35.0); MEAN CORPUSCULAR HGB CONC 31.3 g/dl (31.0-37.0); MEAN PLATELET VOLUME 9.8 fl (7.0-11.0); MONO # 0.8 (0.1-0.6); MONO % 6.9 % (1.0-6.0); RBC 3.27 [, 10^6/uL] (3.5-6.1); RED CELL DISTRIBUTION WIDTH 14.3 % (11.5-14.5); WHITE BLOOD COUNT 12.1 [, 10^3/ul] (4.5-11.0)
[2017-09-09 06:40] LABS: ALB/GLOB RATIO 0.8 (1.1-1.8); ALBUMIN 2.2 g/dL (3.0-4.8); CALCIUM 8.4 mg/dL (8.4-10.5)
[2017-09-09] MEDS: Insulin Reg-MEDIUM-Coverage SC SCH (08:24)
--- NOTE | 2017-09-09 11:36 | CP.PCM.PN ---
<Kendra iTllman - Last Filed: 09/09/17 11:29> Subjective - Date & Time of Evaluation Date of Evaluation: 09/09/17 Time of Evaluation: 11:29 - Subjective Subjective: ICU Progress Note for Yelena Baker PGY2 Patient seen and examined at bedside. As per nursing staff, there were no acute overnight events. Patient is sedated and intubated without brain stem reflexes. ROS could not be obtained. Objective - Vital Signs/Intake and Output Vital Signs (last 24 hours): Temp Pulse Resp BP Pulse Ox 97.2 F L 131 H 18 89/44 L 100 09/09/17 11:10 09/09/17 11:10 09/09/17 11:10 09/09/17 11:00 09/09/17 11:10 Intake and Output: 09/09/17 09/09/17 06:59 18:59 Intake Total 2740 250 Output Total 50 Balance 2690 250 - Medications Medications: Current Medications Aspirin (Aspirin Chewable) 81 mg PO DAILY [facility] Last Admin: 09/09/17 09:13 Dose: 81 mg Atorvastatin Calcium (Lipitor) 40 mg PO DIN [facility] Last Admin: 09/08/17 17:06 Dose: 40 mg Dopamine HCl/Dextrose (Dopamine 400mg/250ml D5w) 400 mg in 250 mls @ 0 mls/hr IV .Q0M PRN; Protocol; 5 MCG/KG/MIN PRN Reason: TITRATE PER MD ORDER Last Admin: 09/09/17 10:36 Dose: 10.03 mcg/kg/min, 41.3 mls/hr Heparin Sodium/Sodium Chloride (Heparin 79201 Units/250ml 1/2 Normal Saline) 25 ,000 units in 250 mls @ 13.172 mls/hr IV .[id number] [facility]; 12 UNITS/KG/HR PRN Reason: Protocol Last Titration: 09/09/17 02:00 Dose: 12 units/kg/hr, 13.172 mls/hr Sodium Chloride (Sodium Chloride 0.9%) 1,000 mls @ 75 mls/hr IV .[id number] [facility] Last Admin: 09/08/17 20:14 Dose: 75 mls/hr Levofloxacin/Dextrose (Levaquin 500mg) 500 mg in 100 mls @ 100 mls/hr IVPB Q48H [facility] Phenylephrine HCl 40 mg/ (Sodium Chloride) 254 mls @ 38.1 mls/hr IV .Q6H40M PRN ; Protocol; 100 MCG/MIN PRN Reason: TITRATE PER MD ORDER Last Admin: 09/09/17 10:25 Dose: 100 mcg/min, 38.1 mls/hr Insulin Human Regular (Humulin R Med) 0 units SC ACHS PRAB[facility] PRN Reason: Protocol Last Admin: 09/09/17 08:24 Dose: Not Given Insulin Human Regular (Humulin R High) 0 units SC ACHS PRABHU PRN Reason: Protocol Pantoprazole Sodium (Protonix Inj) 40 mg IVP DAILY [facility] Last Admin: 09/09/17 09:13 Dose: 40 mg - Labs Labs: 09/09/17 05:30 09/09/17 05:45 PT 12.4 SECONDS (9.4-12.5) 09/08/17 09:40 INR 1.08 (0.93-1.08) 09/08/17 09:40 APTT 57.6 Seconds (25.1-36.5) H 09/09/17 09:40 - Constitutional Appears: Chronically Ill - Head Exam Head Exam: ATRAUMATIC, NORMAL INSPECTION, NORMOCEPHALIC - Eye Exam Eye Exam: absent: PERRL Pupil Exam: Unequal. absent: PERRL - ENT Exam ENT Exam: Mucous Membranes Moist - Respiratory Exam Respiratory Exam: Clear to Ausculation Bilateral, NORMAL BREATHING PATTERN. absent: Rales, Rhonchi, Wheezes - Cardiovascular Exam Cardiovascular Exam: Tachycardia, REGULAR RHYTHM, +S1, +S2. absent: Gallop, Rubs, Murmur - GI/Abdominal Exam GI & Abdominal Exam: Soft, Normal Bowel Sounds. absent: Tenderness, Mass, Rebound - Extremities Exam Extremities Exam: Normal Inspection, Pedal Edema. absent: Calf Tenderness - Neurological Exam Neurological Exam: absent: Alert, Awake Neuro motor strength exam: Left Upper Extremity: 0, Right Upper Extremity: 0, Left Lower Extremity: 0, Right Lower Extremity: 0 Additional comments: No gag, Corneal, calimetric, pupillary reflexes noted. - Skin Skin Exam: Dry, Warm Assessment and Plan - Assessment and Plan (Free Text) Assessment: This is a 71yo female with past medical history of DM, CKD (not on HD), HTN, CAD s/p CABG who was admitted for anoxic brain injury secondary to cardiac arrest. Plan: Neuro: Anoxic brain injury, without brain stem reflex EEG showed minimal brain activity Neuro consulted recs appreciated Continue neuro checks and Seizure precaution Maintain normothermia CV: NSTEMI in setting of DEBBIE Pt is on heparin drip Pt is hypotensive and tachycardic on Dopamine Family refused central line yesterday Attempted contact with family today and they did not answer Will place pt on phenylepherine Continue ASA and Lipitor Maintain MAP>65 Pulm: Intubated, no sedation Head of bed elevated,aspiration precaution Maintain SpO2>92% GI: Continue to keep pt NPO GI prophylaxis Nephro: DEBBIE on CKD Cr stable at 5.2 Continue NS@75 Continue to monitor electrolytes and replace as needed Heme: Hgb stable without No overt signs of bleeding ID: Afebrile, mild leukocytosis U/A showed UTI, urine culture pending Continue Levaquin Endo: Hx of DM Patient switched from insulin drip to ISS Maintain euglycemia (140s-180s) Dispo: Palliative care consulted. Family refused central line yesterday and are not answering the phone today. Patient is full code. Case seen, discussed and reviewed with attending. Yelena Tillman PGY2 <Geovani Velázquez - Last Filed: 09/09/17 12:05> Objective - Vital Signs/Intake and Output Vital Signs (last 24 hours): Temp Pulse Resp BP Pulse Ox 97.2 F L 131 H 18 89/44 L 100 09/09/17 11:10 09/09/17 11:10 09/09/17 11:10 09/09/17 11:00 09/09/17 11:10 Intake and Output: 09/09/17 09/09/17 06:59 18:59 Intake Total 2740 250 Output Total 50 Balance 2690 250 - Medications Medications: Current Medications Aspirin (Aspirin Chewable) 81 mg PO DAILY [facility] Last Admin: 09/09/17 09:13 Dose: 81 mg Atorvastatin Calcium (Lipitor) 40 mg PO DIN [facility] Last Admin: 09/08/17 17:06 Dose: 40 mg Dopamine HCl/Dextrose (Dopamine 400mg/250ml D5w) 400 mg in 250 mls @ 0 mls/hr IV .Q0M PRN; Protocol; 5 MCG/KG/MIN PRN Reason: TITRATE PER MD ORDER Last Admin: 09/09/17 10:36 Dose: 10.03 mcg/kg/min, 41.3 mls/hr Heparin Sodium/Sodium Chloride (Heparin 72970 Units/250ml 1/2 Normal Saline) 25 ,000 units in 250 mls @ 13.172 mls/hr IV .[id number] [facility]; 12 UNITS/KG/HR PRN Reason: Protocol Last Titration: 09/09/17 02:00 Dose: 12 units/kg/hr, 13.172 mls/hr Sodium Chloride (Sodium Chloride 0.9%) 1,000 mls @ 75 mls/hr IV .[id number] [facility] Last Admin: 09/08/17 20:14 Dose: 75 mls/hr Levofloxacin/Dextrose (Levaquin 500mg) 500 mg in 100 mls @ 100 mls/hr IVPB Q48H [facility] Phenylephrine HCl 40 mg/ (Sodium Chloride) 254 mls @ 38.1 mls/hr IV .Q6H40M PRN ; Protocol; 100 MCG/MIN PRN Reason: TITRATE PER MD ORDER Last Admin: 09/09/17 10:25 Dose: 100 mcg/min, 38.1 mls/hr Insulin Human Regular (Humulin R Med) 0 units SC ACHS [facility] PRN Reason: Protocol Last Admin: 09/09/17 08:24 Dose: Not Given Insulin Human Regular (Humulin R High) 0 units SC ACHS [facility] PRN Reason: Protocol Pantoprazole Sodium (Protonix Inj) 40 mg IVP DAILY [facility] Last Admin: 09/09/17 09:13 Dose: 40 mg - Labs Labs: 09/09/17 05:30 09/09/17 05:45 PT 12.4 SECONDS (9.4-12.5) 09/08/17 09:40 INR 1.08 (0.93-1.08) 09/08/17 09:40 APTT 57.6 Seconds (25.1-36.5) H 09/09/17 09:40 Assessment and Plan - Assessment and Plan (Free Text) Plan: Patient seen and examined on rounds with resident, agree with note with following additions/exceptions: Patient 71yo female with past medical history of DM, CKD (not on HD), HTN, CAD s /p CABG who was admitted for anoxic brain injury secondary to cardiac arrest. Patient lacks cortical activity, no corneal or gag reflex, does over breath the ventilator. Neurology following. Patients family refused consent for central line. Currently intubated, off sedation. s/p cardiac arrest anoxic brain injury DM DEBBIE Recommend: - cont with vent support, low tidal vol ventilation, daily ABGs/CXR - follow up cultures - Switch Dopamine to Neosynephrine, patient tachycardic - follow up neurology - will likely brain flow study, once clinically suspected brain - FS control, DC insulin drip, start sliding scale - IVF - cont with Levaquin - GI ppx, PPI - DVT ppx, Heparin drip - Prognosis extremely poor, no meaningful recovery, follow up palliative care consult - family meeting critical care time 40 minutes
[2017-09-09] MEDS: Insulin Reg-HIGH-Coverage SC SCH ×2 (12:43→17:23)
--- NOTE | 2017-09-09 13:59 | CP.PCM.PN ---
<Maki Roland - Last Filed: 09/09/17 19:11> Subjective - Date & Time of Evaluation Date of Evaluation: 09/09/17 Time of Evaluation: 07:30 - Subjective Subjective: Maki Roland DO PGY1 - Internal Medicine Progress Note Patient seen and examined at bedside in the ICU. Patient remains intubated, on vasopressors, but without sedation. Patient unresponsive. ROS unobtainable. Objective - Vital Signs/Intake and Output Vital Signs (last 24 hours): Temp Pulse Resp BP Pulse Ox 97.2 F L 131 H 18 89/44 L 100 09/09/17 11:10 09/09/17 11:10 09/09/17 11:10 09/09/17 11:00 09/09/17 11:10 Intake and Output: 09/09/17 09/09/17 06:59 18:59 Intake Total 2740 250 Output Total 50 Balance 2690 250 - Medications Medications: Current Medications Aspirin (Aspirin Chewable) 81 mg PO DAILY [facility] Last Admin: 09/09/17 09:13 Dose: 81 mg Atorvastatin Calcium (Lipitor) 40 mg PO DIN [facility] Last Admin: 09/08/17 17:06 Dose: 40 mg Dopamine HCl/Dextrose (Dopamine 400mg/250ml D5w) 400 mg in 250 mls @ 0 mls/hr IV .Q0M PRN; Protocol; 5 MCG/KG/MIN PRN Reason: TITRATE PER MD ORDER Last Admin: 09/09/17 10:36 Dose: 10.03 mcg/kg/min, 41.3 mls/hr Heparin Sodium/Sodium Chloride (Heparin 64364 Units/250ml 1/2 Normal Saline) 25 ,000 units in 250 mls @ 13.172 mls/hr IV .[id number] [facility]; 12 UNITS/KG/HR PRN Reason: Protocol Last Titration: 09/09/17 02:00 Dose: 12 units/kg/hr, 13.172 mls/hr Sodium Chloride (Sodium Chloride 0.9%) 1,000 mls @ 75 mls/hr IV .[id number] [facility] Last Admin: 09/08/17 20:14 Dose: 75 mls/hr Levofloxacin/Dextrose (Levaquin 500mg) 500 mg in 100 mls @ 100 mls/hr IVPB Q48H [facility] Phenylephrine HCl 40 mg/ (Sodium Chloride) 254 mls @ 38.1 mls/hr IV .Q6H40M PRN ; Protocol; 100 MCG/MIN PRN Reason: TITRATE PER MD ORDER Last Admin: 09/09/17 10:25 Dose: 100 mcg/min, 38.1 mls/hr Insulin Human Regular (Humulin R Med) 0 units SC ACHS [facility] PRN Reason: Protocol Last Admin: 09/09/17 08:24 Dose: Not Given Insulin Human Regular (Humulin R High) 0 units SC ACHS [facility] PRN Reason: Protocol Last Admin: 09/09/17 12:43 Dose: Not Given Pantoprazole Sodium (Protonix Inj) 40 mg IVP DAILY [facility] Last Admin: 09/09/17 09:13 Dose: 40 mg - Labs Labs: 09/09/17 05:30 09/09/17 05:45 PT 12.4 SECONDS (9.4-12.5) 09/08/17 09:40 INR 1.08 (0.93-1.08) 09/08/17 09:40 APTT 57.6 Seconds (25.1-36.5) H 09/09/17 09:40 - Constitutional Appears: Other (Intubated, unresponsive, without sedation, anasarca) - Head Exam Head Exam: ATRAUMATIC, NORMOCEPHALIC - Eye Exam Additional comments: No pupillary or corneal reflex left eye grossly edematous Both eyes with conjunctival edema - ENT Exam ENT Exam: Mucous Membranes Moist - Neck Exam Neck Exam: Normal Inspection - Respiratory Exam Respiratory Exam: Decreased Breath Sounds - Cardiovascular Exam Cardiovascular Exam: Tachycardia, REGULAR RHYTHM, +S1, +S2 - GI/Abdominal Exam GI & Abdominal Exam: Soft. absent: Distended, Firm, Guarding, Rigid - Extremities Exam Additional comments: All four extremeties grossly edematous - Neurological Exam Additional comments: Patient unresponsive to verbal, tactile, or noxious stimuli. No corneal or gag reflexes. No dolls eye movement. Patient not seen to be overbreathing vent during encounter today. - Skin Skin Exam: Dry, Intact Assessment and Plan - Assessment and Plan (Free Text) Assessment: 71 yo F with a PMH of HTN, CAD (s/p CABG), DM, HLD, who is admitted for anoxic brain injury s/p cardiac arrest with 45 minutes of CPR before ROSC. Now intubated, without sedation, without any brainstem reflexes noted on exam. Anoxic brain injury s/p cardiac arrest - Patient unresponsive, without corneal or gag reflexes on exam. No longer over- breathing the ventilator. - Patient remains full code at this time; discussed with family yesterday who are considering terminal extubation after the Sabbath - Consider doing nuclear perfusion scan per neuro - On levophed for pressure support - Neuro on consult; appreciate recs - Palliative care on consult; appreciate recs NSTEMI - Patient has elevated troponins, plateaued - Likely 2/2 NSTEMI which may have caused cardiac arrest vs CPR - Continue heparin drip - Continue ASA and Statin Hyperglycemia - Patient was severely hyperglycemic prior to admission - Started on insulin drip, which has since been discontinued - Continue insulin sliding scale with ACCUCHECK Q6h DEBBIE - No improvement in renal function - Continue vasopressors and IVF administration to maintain adequate kidney perfusion UTI - UA shows pyuria, bacteruria, and LE - UCx shows gram negative rods - Continue levaquin - Patient is afebrile, mild leukocytosis GI/DVT Ppx: Heparin drip, protonix Patient seen, discussed, and reviewed with attending Dr. Batista <Federico Batista - Last Filed: 09/10/17 13:10> Objective - Vital Signs/Intake and Output Vital Signs (last 24 hours): Temp Pulse Resp BP Pulse Ox 96.1 F L 112 H 131 H 86/20 L 94 L 09/10/17 02:56 09/10/17 02:59 09/10/17 03:09 09/10/17 02:51 09/10/17 02:40 Intake and Output: 09/10/17 09/10/17 06:59 18:59 Intake Total 1044 Balance 1044 - Labs Labs: 09/09/17 05:30 09/09/17 05:45 PT 12.4 SECONDS (9.4-12.5) 09/08/17 09:40 INR 1.08 (0.93-1.08) 09/08/17 09:40 APTT 127.3 Seconds (25.1-36.5) H* 09/10/17 00:30 Attending/Attestation - Attestation I have personally seen and examined this patient.: Yes I have fully participated in the care of the patient.: Yes I have reviewed all pertinent clinical information, including history, physical exam and plan: Yes Notes (Text): I have seen and examined patient with the resident. I agree with the above note dictated by the resident with the following additions/exceptions: Briefly this is 71 year old female with history of DM-2, CKDM HTN, CAD, CABG who was admitted for anxic brain injury due to cardia arrest. Patient does not have gag reflex, corneal reflex and pupils are dilated and fixed. Patient is still breathing over the ventilator. Patient is untubated and not sedated. She remains unresponsive. Family is deciding about terminal extubation. Palliative care on board. Metal Riveter and neurologist on board. Prognosis remains very poor.
--- NOTE | 2017-09-09 16:17 | PCM.PROC ---
Procedures Attestation:: I certify that I have explained the specified Operation(s) or Procedure(s), risks, benefits and reasonable alternatives to the Patient and/or other person responsible. The opportunity was given to ask questions and all questions answered - Central Line Placement Left Femoral Triple Lumen Catheter Aseptic technique was employed throughout the procedure: Hand Hygiene done prior to procedure, Full sterile barriers (mask, hair cover, sterile gown, sterile gloves), Full body sterile drape, Chloraprep Antiseptic: 2 minute prep for Femoral Pt. Placed on Pulse Ox Monitor: Yes Central Line Prep: Povidone-Iodine 1% Ultrasound Used for Placement: Yes Central Line Lumen Inserted: triple Central Line Length: 16 cm Post Procedure: Sutured in Place, Good Blood Return, All Ports Aspirated, Flushed, Capped, Sterile Dressing Applied Post procedure dressing: Gauze, Clear vapor permeable, Chlorhexidine disc ( Biopatch) Post Procedure X-Ray: No Patient Tolerated Procedure: Well, No Complications Immediate Complications: None
[2017-09-09] MEDS: NOREPINEPHRINE BIT/0.9 % NACL 4 MG/250 ML BAG IV PRN ×2 (16:56→22:42)
[2017-09-09] MEDS: Sodium Chloride 0.9% 1,000 ML IV SCH (17:26)
[2017-09-09] MEDS ORDERED: Insulin Reg-HIGH-Coverage SC SCH (17:45)
[2017-09-09] MEDS: Heparin25000 units/250ml 1/2NS 25,000 UNITS/250 ML BAG IV SCH (22:35)
[2017-09-10] MEDS: NOREPINEPHRINE BIT/0.9 % NACL 4 MG/250 ML BAG IV PRN (00:57)
--- NOTE | 2017-09-10 03:06 | CP.PCM.PRO ---
Pronouncement of Note - Clinical Findings Physical Exam: No Response Verbal/Painful Stimuli, Absent Peripheral Pulses{ Carotid & Femoral}, Absent Heart & Breath Sounds, No Pupillary Light Reflex, No Corneal Reflex, Pupils Fixed & Dilated, Absence of Vital Signs - Pronouncement Time Time of Pronouncement of : 03:01 Additional Comments: Patient coded for 10 minutes, chest compression was started , with 2 epi giving. No return of ROSC. - Notifications Pronouncement Notifications: Family Notified, Atending Notified Web Design Intern Notified: No - Autopsy Autopsy Requested: No - [place] [id number]
[2017-09-10 05:16] VITALS: BP 86/20; PULSE 112; RESP 131; TEMP 96.1; O2SAT 94
[2017-09-10] MEDS ORDERED: levoFLOXacin 500 mg in D5W 500 MG/100 ML BAG IVPB SCH (10:00)
--- NOTE | 2017-09-10 20:10 | CP.PCM.DIS ---
<LuanMaki - Last Filed: 09/10/17 20:03> Provider - Provider Date of Admission: 09/08/17 00:08 Attending physician: Federico Batista MD Consults: Neuro: Patrick Time Spent in preparation of Discharge (in minutes): 45 Diagnosis - Discharge Diagnosis (1) Anoxic brain injury Status: Acute Priority: High (2) History of cardiac arrest Status: Acute Hospital Course - Lab Results Lab Results: Micro Results 09/08/17 03:43 Blood Blood Culture - Preliminary NO GROWTH AFTER 48 HOURS 09/08/17 01:00 Naris MRSA Culture (Admit) - Final MRSA NOT DETECTED Most Recent Lab Values WBC 12.1 10^3/ul (4.5-11.0) H 09/09/17 05:30 RBC 3.27 10^6/uL (3.5-6.1) L 09/09/17 05:30 Hgb 9.5 g/dL (12.0-16.0) L 09/09/17 05:30 Hct 30.4 % (36.0-48.0) L 09/09/17 05:30 MCV 93.0 fl (80.0-105.0) 09/09/17 05:30 MCH 29.1 pg (25.0-35.0) 09/09/17 05:30 MCHC 31.3 g/dl (31.0-37.0) 09/09/17 05:30 RDW 14.3 % (11.5-14.5) 09/09/17 05:30 Plt Count 178 10^3/uL (120.0-450.0) 09/09/17 05:30 MPV 9.8 fl (7.0-11.0) 09/09/17 05:30 Gran % 75.8 % (50.0-68.0) H 09/09/17 05:30 Lymph % (Auto) 12.1 % (22.0-35.0) L 09/09/17 05:30 [place] % (Auto) 6.9 % (1.0-6.0) H 09/09/17 05:30 Eos % (Auto) 5.0 % (1.5-5.0) 09/09/17 05:30 Baso % (Auto) 0.2 % (0.0-3.0) 09/09/17 05:30 Gran # 9.18 (1.4-6.5) H 09/09/17 05:30 Lymph # 1.5 (1.2-3.4) 09/09/17 05:30 [place] # 0.8 (0.1-0.6) H 09/09/17 05:30 Eos # 0.6 (0.0-0.7) 09/09/17 05:30 Baso # 0.03 K/mm3 (0.0-2.0) 09/09/17 05:30 PT 12.4 SECONDS (9.4-12.5) 09/08/17 09:40 INR 1.08 (0.93-1.08) 09/08/17 09:40 APTT 127.3 Seconds (25.1-36.5) H* 09/10/17 00:30 pCO2 37 mm/Hg (35-45) 09/08/17 05:45 pO2 198.0 mm/Hg (80-100) H 09/08/17 05:45 HCO3 14.1 mmol/L (21-28) L 09/08/17 05:45 ABG pH 7.19 (7.35-7.45) L* 09/08/17 05:45 ABG Total CO2 15.2 mmol.L (22-28) L 09/08/17 05:45 ABG O2 Saturation 98.2 % (95-98) H 09/08/17 05:45 ABG O2 Content 30.0 ML/dl (15-23) H 09/08/17 05:45 ABG Base Excess -13.1 mmol/L (-2.0-3.0) L 09/08/17 05:45 ABG Hemoglobin 21.8 g/dL (11.7-17.4) H 09/08/17 05:45 ABG Carboxyhemoglobin 0.8 % (0.5-1.5) 09/08/17 05:45 POC ABG HHb (Measured) 1.8 % (0-5) 09/08/17 05:45 ABG Methemoglobin 0.3 % (0.0-3.0) 09/08/17 05:45 ABG O2 Capacity 30.5 mL/dl (16-24) H 09/08/17 05:45 VBG pH 7.16 (7.32-7.43) L* 09/07/17 23:44 VBG pCO2 46.0 (40-60) 09/07/17 23:44 VBG HCO3 16.4 mmol/l (21-28) L 09/07/17 23:44 VBG Total CO2 17.8 mmol.L (22-28) L 09/07/17 23:44 VBG O2 Sat (Calc) 98.9 % (40-65) H 09/07/17 23:44 VBG Base Excess -12.1 mmol/L (0.0-2.0) L 09/07/17 23:44 VBG Potassium 5.5 mmol/L (3.6-5.2) H 09/07/17 23:44 Hgb O2 Saturation 97.1 % (95.0-98.0) 09/08/17 05:45 Sodium 140.0 mmol/L (132-148) 09/07/17 23:44 Chloride 111.0 mmol/L (98-107) H 09/07/17 23:44 Glucose 247 mg/dl (65-105) H 09/07/17 23:44 Lactate 1.9 mmol/L (0.7-2.1) 09/07/17 23:44 FiO2 60.0 % 09/08/17 05:45 Sodium 136 mmol/L (132-148) 09/09/17 05:45 Potassium 5.1 mmol/L (3.6-5.0) H 09/09/17 05:45 Chloride 111 mmol/L (98-107) H 09/09/17 05:45 Carbon Dioxide 13 mmol/L (21-33) L 09/09/17 05:45 Anion Gap 17 (10-20) 09/09/17 05:45 BUN 85 mg/dL (7-21) H 09/09/17 05:45 Creatinine 5.2 mg/dl (0.7-1.2) H 09/09/17 05:45 Est GFR ( Amer) 10 09/09/17 05:45 Est GFR (Non-Af Amer) 8 09/09/17 05:45 POC Glucose (mg/dL) 104 mg/dL (65-110) 09/10/17 01:23 Random Glucose 154 mg/dL (70-110) H 09/09/17 05:45 Calcium 8.4 mg/dL (8.4-10.5) 09/09/17 05:45 Phosphorus 6.8 mg/dL (2.5-4.5) H 09/07/17 21:50 Magnesium 2.2 mg/dL (1.7-2.2) 09/07/17 21:50 Total Bilirubin 0.8 mg/dL (0.2-1.3) 09/09/17 05:45 AST 53 U/L (14-36) H 09/09/17 05:45 ALT 24 U/L (7-56) 09/09/17 05:45 Alkaline Phosphatase 135 U/L (38-126) H 09/09/17 05:45 Lactate Dehydrogenase 1388 U/L (333-699) H 09/07/17 21:50 Total Creatine Kinase 595 U/L (35-230) H 09/07/17 21:50 CK-MB (CK-2) 4.6 ng/mL (0.0-3.6) H 09/07/17 21:50 CK-MB (CK-2) % Cancelled 09/07/17 21:50 Troponin I 1.37 ng/mL H* 09/08/17 09:40 Total Protein 5.1 g/dL (5.8-8.3) L 09/09/17 05:45 Albumin 2.2 g/dL (3.0-4.8) L 09/09/17 05:45 Globulin 2.9 gm/dL 09/09/17 05:45 Albumin/Globulin Ratio 0.8 (1.1-1.8) L 09/09/17 05:45 Venous Blood Potassium 5.5 mmol/L (3.6-5.2) H 09/07/17 23:44 Urine Color Yellow (YELLOW) 09/07/17 21:50 Urine Appearance Sl cloudy (CLEAR) 09/07/17 21:50 Urine pH 5.0 (4.7-8.0) 09/07/17 21:50 Ur Specific [place] 1.025 (1.005-1.035) 09/07/17 21:50 Urine Protein 100 mg/dL (<30 mg/dL) H 09/07/17 21:50 Urine Glucose (UA) Negative mg/dL (NEGATIVE) 09/07/17 21:50 Urine Ketones Trace mg/dL (NEGATIVE) H 09/07/17 21:50 Urine Blood Small (NEGATIVE) H 09/07/17 21:50 Urine Nitrate Negative (NEGATIVE) 09/07/17 21:50 Urine Bilirubin Negative (NEGATIVE) 09/07/17 21:50 Urine Urobilinogen 0.2 E.U./dL (<1 E.U./dL) 09/07/17 21:50 Ur Leukocyte Esterase Small Carol/uL (NEGATIVE) H 09/07/17 21:50 Urine RBC 5 - 10 /hpf (0-2) 09/07/17 21:50 Urine WBC 10 - 15 /hpf (0-6) 09/07/17 21:50 Ur Epithelial Cells Many /hpf (0-5) 09/07/17 21:50 Urine Bacteria Large (NEG) 09/07/17 21:50 Hyaline Casts 0 - 2 /hpf 09/07/17 21:50 - Hospital Course Hospital Course: 1 yo F with a PMH of HTN, CAD (s/p CABG), DM, HLD, who was admitted for anoxic brain injury s/p cardiac arrest with 45 minutes of CPR before ROSC. Patient arrived intubated, off sedation, unresponsive, though continued to have some medullary brainstem reflexes initially. Patient remained full code per family's wishes. She was treated for hypotension and remained on pressors, NSTEMI, hyperglycemia, DEBBIE, and a UTI. Yesterday evening, patient went into asystole on the monitor, with no palpable pulses. Patient underwent ACLS for 10 minutes with two rounds of epinephrine with no ROSC and persistent asystole. Patient was pronounced at 0301. Family and Rabbi came to bedside to see the patient. Discharge Exam - Additional Findings Additional findings: No exam performed, patient was pronounced during the night. See pronouncement of note. Discharge Plan - Follow Up Plan Condition: Disposition: WITH WITHOUT AUTOPSY <Federico Batista - Last Filed: 09/11/17 15:44> Provider - Provider Date of Admission: 09/08/17 00:08 Attending physician: Federico Batista MD Hospital Course - Lab Results Lab Results: Micro Results 09/08/17 03:43 Blood Blood Culture - Preliminary NO GROWTH AFTER 3 DAYS 09/08/17 01:00 Naris MRSA Culture (Admit) - Final MRSA NOT DETECTED Most Recent Lab Values WBC 12.1 10^3/ul (4.5-11.0) H 09/09/17 05:30 RBC 3.27 10^6/uL (3.5-6.1) L 09/09/17 05:30 Hgb 9.5 g/dL (12.0-16.0) L 09/09/17 05:30 Hct 30.4 % (36.0-48.0) L 09/09/17 05:30 MCV 93.0 fl (80.0-105.0) 09/09/17 05:30 MCH 29.1 pg (25.0-35.0) 09/09/17 05:30 MCHC 31.3 g/dl (31.0-37.0) 09/09/17 05:30 RDW 14.3 % (11.5-14.5) 09/09/17 05:30 Plt Count 178 10^3/uL (120.0-450.0) 09/09/17 05:30 MPV 9.8 fl (7.0-11.0) 09/09/17 05:30 Gran % 75.8 % (50.0-68.0) H 09/09/17 05:30 Lymph % (Auto) 12.1 % (22.0-35.0) L 09/09/17 05:30 [place] % (Auto) 6.9 % (1.0-6.0) H 09/09/17 05:30 Eos % (Auto) 5.0 % (1.5-5.0) 09/09/17 05:30 Baso % (Auto) 0.2 % (0.0-3.0) 09/09/17 05:30 Gran # 9.18 (1.4-6.5) H 09/09/17 05:30 Lymph # 1.5 (1.2-3.4) 09/09/17 05:30 [place] # 0.8 (0.1-0.6) H 09/09/17 05:30 Eos # 0.6 (0.0-0.7) 09/09/17 05:30 Baso # 0.03 K/mm3 (0.0-2.0) 09/09/17 05:30 PT 12.4 SECONDS (9.4-12.5) 09/08/17 09:40 INR 1.08 (0.93-1.08) 09/08/17 09:40 APTT 127.3 Seconds (25.1-36.5) H* 09/10/17 00:30 pCO2 37 mm/Hg (35-45) 09/08/17 05:45 pO2 198.0 mm/Hg (80-100) H 09/08/17 05:45 HCO3 14.1 mmol/L (21-28) L 09/08/17 05:45 ABG pH 7.19 (7.35-7.45) L* 09/08/17 05:45 ABG Total CO2 15.2 mmol.L (22-28) L 09/08/17 05:45 ABG O2 Saturation 98.2 % (95-98) H 09/08/17 05:45 ABG O2 Content 30.0 ML/dl (15-23) H 09/08/17 05:45 ABG Base Excess -13.1 mmol/L (-2.0-3.0) L 09/08/17 05:45 ABG Hemoglobin 21.8 g/dL (11.7-17.4) H 09/08/17 05:45 ABG Carboxyhemoglobin 0.8 % (0.5-1.5) 09/08/17 05:45 POC ABG HHb (Measured) 1.8 % (0-5) 09/08/17 05:45 ABG Methemoglobin 0.3 % (0.0-3.0) 09/08/17 05:45 ABG O2 Capacity 30.5 mL/dl (16-24) H 09/08/17 05:45 VBG pH 7.16 (7.32-7.43) L* 09/07/17 23:44 VBG pCO2 46.0 (40-60) 09/07/17 23:44 VBG HCO3 16.4 mmol/l (21-28) L 09/07/17 23:44 VBG Total CO2 17.8 mmol.L (22-28) L 09/07/17 23:44 VBG O2 Sat (Calc) 98.9 % (40-65) H 09/07/17 23:44 VBG Base Excess -12.1 mmol/L (0.0-2.0) L 09/07/17 23:44 VBG Potassium 5.5 mmol/L (3.6-5.2) H 09/07/17 23:44 Hgb O2 Saturation 97.1 % (95.0-98.0) 09/08/17 05:45 Sodium 140.0 mmol/L (132-148) 09/07/17 23:44 Chloride 111.0 mmol/L (98-107) H 09/07/17 23:44 Glucose 247 mg/dl (65-105) H 09/07/17 23:44 Lactate 1.9 mmol/L (0.7-2.1) 09/07/17 23:44 FiO2 60.0 % 09/08/17 05:45 Sodium 136 mmol/L (132-148) 09/09/17 05:45 Potassium 5.1 mmol/L (3.6-5.0) H 09/09/17 05:45 Chloride 111 mmol/L (98-107) H 09/09/17 05:45 Carbon Dioxide 13 mmol/L (21-33) L 09/09/17 05:45 Anion Gap 17 (10-20) 09/09/17 05:45 BUN 85 mg/dL (7-21) H 09/09/17 05:45 Creatinine 5.2 mg/dl (0.7-1.2) H 09/09/17 05:45 Est GFR ( Amer) 10 09/09/17 05:45 Est GFR (Non-Af Amer) 8 09/09/17 05:45 POC Glucose (mg/dL) 104 mg/dL (65-110) 09/10/17 01:23 Random Glucose 154 mg/dL (70-110) H 09/09/17 05:45 Calcium 8.4 mg/dL (8.4-10.5) 09/09/17 05:45 Phosphorus 6.8 mg/dL (2.5-4.5) H 09/07/17 21:50 Magnesium 2.2 mg/dL (1.7-2.2) 09/07/17 21:50 Total Bilirubin 0.8 mg/dL (0.2-1.3) 09/09/17 05:45 AST 53 U/L (14-36) H 09/09/17 05:45 ALT 24 U/L (7-56) 09/09/17 05:45 Alkaline Phosphatase 135 U/L (38-126) H 09/09/17 05:45 Lactate Dehydrogenase 1388 U/L (333-699) H 09/07/17 21:50 Total Creatine Kinase 595 U/L (35-230) H 09/07/17 21:50 CK-MB (CK-2) 4.6 ng/mL (0.0-3.6) H 09/07/17 21:50 CK-MB (CK-2) % Cancelled 09/07/17 21:50 Troponin I 1.37 ng/mL H* 09/08/17 09:40 Total Protein 5.1 g/dL (5.8-8.3) L 09/09/17 05:45 Albumin 2.2 g/dL (3.0-4.8) L 09/09/17 05:45 Globulin 2.9 gm/dL 09/09/17 05:45 Albumin/Globulin Ratio 0.8 (1.1-1.8) L 09/09/17 05:45 Venous Blood Potassium 5.5 mmol/L (3.6-5.2) H 09/07/17 23:44 Urine Color Yellow (YELLOW) 09/07/17 21:50 Urine Appearance Sl cloudy (CLEAR) 09/07/17 21:50 Urine pH 5.0 (4.7-8.0) 09/07/17 21:50 Ur Specific [place] 1.025 (1.005-1.035) 09/07/17 21:50 Urine Protein 100 mg/dL (<30 mg/dL) H 09/07/17 21:50 Urine Glucose (UA) Negative mg/dL (NEGATIVE) 09/07/17 21:50 Urine Ketones Trace mg/dL (NEGATIVE) H 09/07/17 21:50 Urine Blood Small (NEGATIVE) H 09/07/17 21:50 Urine Nitrate Negative (NEGATIVE) 09/07/17 21:50 Urine Bilirubin Negative (NEGATIVE) 09/07/17 21:50 Urine Urobilinogen 0.2 E.U./dL (<1 E.U./dL) 09/07/17 21:50 Ur Leukocyte Esterase Small [place]/uL (NEGATIVE) H 09/07/17 21:50 Urine RBC 5 - 10 /hpf (0-2) 09/07/17 21:50 Urine WBC 10 - 15 /hpf (0-6) 09/07/17 21:50 Ur Epithelial Cells Many /hpf (0-5) 09/07/17 21:50 Urine Bacteria Large (NEG) 09/07/17 21:50 Hyaline Casts 0 - 2 /hpf 09/07/17 21:50 Attending/Attestation - Attestation I have personally seen and examined this patient.: No I have fully participated in the care of the patient.: No I have reviewed all pertinent clinical information, including history, physical exam and plan: Yes Notes (Text): Patient . Medical certificate signed.
--- NOTE | 2017-09-12 06:05 | EEG ---
DATE: 09/08/2017 ATTENDING PHYSICIAN: Federico Batista MD INTERPRETATION: Indication is for possible seizure. MEDICATION: To review as this chart. TECHNICAL: This is a digitally recorded EEG using a 10-20 international electrode placement system. 16 channels of scalp EEG were recorded including another channel for EKG. The data is stored digitally and reviewed in montage for optimal display. DESCRIPTION: The EEG shows a normal posterior dominant rhythm at 8 to 9 Hz alpha, which is reactive, symmetric, and attenuating to eye opening. There is no more drowsiness noted. There is also diffuse generalized slowing with an admixture of theta/delta activity. There is no sleep recorded. There are no subclinical or clinical seizures. IMPRESSION: This is a normal awake and drowsy EEG. Clinical correlation is required. Rafa Lara MD
== END 2017-09-10 03:01 | DRG 91 ==
LOC: ED 21:05 → ERH 09-08 00:08 → CCU 09-08 01:19
PROVIDERS: ADMIT Hospitalist; ATTEND Hospitalist
PROC: 5A1945Z Respiratory Ventilation, 24-96 Consecutive Hours (ICD-10-PCS; principal; 2017-09-08)
PROC: 06HY33Z Insertion of Infusion Device into Lower Vein, Percutaneous Approach (ICD-10-PCS; 2017-09-09)
PROC: 3E043XZ Introduction of Vasopressor into Central Vein, Percutaneous Approach (ICD-10-PCS; 2017-09-09)
PROC: B54CZZA Ultrasonography of Left Lower Extremity Veins, Guidance (ICD-10-PCS; 2017-09-09)
DX: G93.1 Anoxic brain damage, not elsewhere classified (principal); I21.4 Non-ST elevation (NSTEMI) myocardial infarction; I46.9 Cardiac arrest, cause unspecified; N17.9 Acute kidney failure, unspecified; E87.2 Acidosis; N30.00 Acute cystitis without hematuria; I12.9 Hypertensive chronic kidney disease with stage 1 through stage 4 chronic kidney disease, or unspecified chronic kidney disease; N18.9 Chronic kidney disease, unspecified; E11.22 Type 2 diabetes mellitus with diabetic chronic kidney disease; E11.65 Type 2 diabetes mellitus with hyperglycemia; E87.5 Hyperkalemia; I25.10 Atherosclerotic heart disease of native coronary artery without angina pectoris; R40.2430 Glasgow coma scale score 3-8, unspecified time; Z95.1 Presence of aortocoronary bypass graft